=== PATIENT | female | born 1965 | race African-American/Black ===

== ENCOUNTER 2022-01-24 18:07 | Emergency (ER) | payer OTHER ==
[~2022-01-24] VITALS: Ht 165.1 cm; Wt 75.0 kg
[2022-01-24 20:02] LABS: BASOPHILS % 0.9 % (0.0-2.0); EOSINOPHILS % 3.6 % (0.0-5.0); HEMATOCRIT. 39.6 % (36.0-48.0); HEMOGLOBIN. 12.9 g/dL (12.0-16.0); LYMPHOCYTES % 20.4 % (20.0-50.0); MEAN CORPUSCULAR VOLUME 95.3 fL (81.0-99.0); MEAN PLATELET VOLUME 9.5 fl (7.4-10.4); MONOCYTES % 10.5 % (2.0-8.0); NEUTROPHILS % 64.6 % (40.0-76.0); PLATELET 247 x1000/uL (130-400); RED BLOOD CELL COUNT 4.16 mill/uL (4.2-5.4)
[2022-01-24 20:13] LABS: CHLORIDE 105 mEq/L (98-107)
[2022-01-24 20:20] LABS: ETHANOL BLOOD < 10 mg/dL
[2022-01-24 20:22] LABS: CLARITY URINE CLEAR (CLEAR); COLOR URINE YELLOW (YELLOW); KETONES URINE NEGATIVE (NEGATIVE); LEUKOCYTE ESTERASE URINE NEGATIVE (NEGATIVE); NITRITE URINE NEGATIVE (NEGATIVE); OCCULT BLOOD URINE NEGATIVE (NEGATIVE); PROTEIN URINE NEGATIVE (NEGATIVE); SPECIFIC GRAVITY URINE 1.014 (1.005-1.030)
[2022-01-24 20:36] LABS: *AMPHETAMINES SCREEN URINE NEGATIVE (NEGATIVE); *BARBITURATES SCREEN URINE NEGATIVE (NEGATIVE); *BENZODIAZEPINES SCREEN URINE NEGATIVE (NEGATIVE); *COCAINE SCREEN URINE NEGATIVE (NEGATIVE); CANNABINOID URINE SCREEN NEGATIVE (NEGATIVE); METHADONE URINE SCREEN NEGATIVE (NEGATIVE); OPIATES URINE SCREEN NEGATIVE (NEGATIVE); PHENCYCLIDINE URINE SCREEN NEGATIVE (NEGATIVE)
[2022-01-24] MEDS ORDERED: LORAZEPAM 1MG TABLET PO ONE (21:00)
[2022-01-25] MEDS ORDERED: ARIPIPRAZOLE 5MG TABLET PO SCH (10:30)
[2022-01-25 11:40] VITALS: BP 130/62
== END 2022-01-25 11:58 | disposition home or self-care (01) ==
LOC: ER 18:07
DX: F20.89 Other schizophrenia (principal); I10 Essential (primary) hypertension; Z20.822 Contact with and (suspected) exposure to COVID-19
CPT/HCPCS: 36415; 80053; 80305; 80307; 80320; 80329; 81003; 85025; 87426; 99285; C9803; G0480

== ENCOUNTER 2023-09-06 14:16 | Emergency (ER) | payer OTHER ==
[~2023-09-06] VITALS: Ht 165.1 cm; Wt 70.0 kg
[2023-09-06 14:29] VITALS: O2SAT 100
[2023-09-06 16:07] LABS: CLARITY URINE CLEAR (CLEAR); COLOR URINE YELLOW (YELLOW); GLUCOSE URINE NEGATIVE (NEGATIVE); KETONES URINE NEGATIVE (NEGATIVE); LEUKOCYTE ESTERASE URINE NEGATIVE (NEGATIVE); NITRITE URINE NEGATIVE (NEGATIVE); OCCULT BLOOD URINE NEGATIVE (NEGATIVE); PROTEIN URINE NEGATIVE (NEGATIVE); SPECIFIC GRAVITY URINE 1.007 (1.005-1.030)
[2023-09-06 16:09] LABS: BASOPHILS % 0.7 % (0.0-2.0); DIFFERENTIAL COMMENT 0; EOSINOPHILS % 0.5 % (0.0-5.0); HEMATOCRIT. 42.2 % (36.0-48.0); HEMOGLOBIN. 14.1 g/dL (12.0-16.0); LYMPHOCYTES % 17.1 % (20.0-50.0); MEAN CORPUSCULAR HGB CONC 33.4 g/dL (31.0-37.0); MEAN CORPUSCULAR VOLUME 95.6 fL (81.0-99.0); MEAN PLATELET VOLUME 10.2 fl (7.4-10.4); MONOCYTES % 7.1 % (2.0-8.0); NEUTROPHILS % 74.6 % (40.0-76.0); PLATELET 228 x1000/uL (130-400); RED BLOOD CELL COUNT 4.41 mill/uL (4.2-5.4); RED CELL DISTRIBUTION WIDTH 13.8 % (11.6-14.6); WHITE BLOOD COUNT 9.9 x1000/uL (4.5-11.0)
[2023-09-06 16:19] LABS: ALANINE AMINOTRANSFERASE 16 IU/L (10-49); ALBUMIN 4.5 g/dL (3.2-4.8); ASPARTATE AMINOTRANSFERASE 27 IU/L (<34); BILIRUBIN TOTAL 0.7 mg/dL (0.1-1.0); CALCIUM 10.1 mg/dL (8.7-10.4); CARBON DIOXIDE 30 mEq/L (21-32); CHLORIDE 101 mEq/L (98-107); CREATININE 0.8 mg/dL (0.6-1.0); GLUCOSE 102 mg/dL (70-105); POTASSIUM 3.3 mEq/L (3.5-5.1); PROTEIN TOTAL 8.7 g/dL (6.0-8.3); SODIUM 139 mEq/L (136-145); UREA NITROGEN BLOOD 11 mg/dL (9-23)
[2023-09-06 17:03] VITALS: BP 145/98; PULSE 101; RESP 18; TEMP 98.9
== END 2023-09-06 17:03 | disposition home or self-care (01) ==
LOC: ER 14:16
DX: R10.9 Unspecified abdominal pain (principal); I48.91 Unspecified atrial fibrillation; I10 Essential (primary) hypertension; Z86.59 Personal history of other mental and behavioral disorders
CPT/HCPCS: 36415; 80053; 81003; 85025; 99283

== ENCOUNTER 2023-09-08 14:02 | Emergency (ER) | payer OTHER, MEDICAID ==
[~2023-09-08] VITALS: Ht 162.6 cm; Wt 54.0 kg
[2023-09-08 14:26] VITALS: TEMP 98.4; O2SAT 98
[2023-09-08] MEDS ORDERED: ASPIRIN 325MG TABLET PO ONE (14:30)
[2023-09-08 14:50] LABS: BASOPHILS % 0.8 % (0.0-2.0); EOSINOPHILS % 2.2 % (0.0-5.0); HEMATOCRIT. 38.7 % (36.0-48.0); HEMOGLOBIN. 12.5 g/dL (12.0-16.0); LYMPHOCYTES % 21.9 % (20.0-50.0); MEAN CORPUSCULAR HEMOGLOBIN 31.2 pg (28.0-32.0); MEAN CORPUSCULAR HGB CONC 32.2 g/dL (31.0-37.0); MEAN CORPUSCULAR VOLUME 96.8 fL (81.0-99.0); MEAN PLATELET VOLUME 10.1 fl (7.4-10.4); MONOCYTES % 7.8 % (2.0-8.0); NEUTROPHILS % 67.3 % (40.0-76.0); PLATELET 219 x1000/uL (130-400); WHITE BLOOD COUNT 8.1 x1000/uL (4.5-11.0)
[2023-09-08 15:01] LABS: ALANINE AMINOTRANSFERASE 12 IU/L (10-49); ASPARTATE AMINOTRANSFERASE 25 IU/L (<34); BILIRUBIN TOTAL 0.8 mg/dL (0.1-1.0); CALCIUM 9.8 mg/dL (8.7-10.4); CARBON DIOXIDE 29 mEq/L (21-32); CHLORIDE 102 mEq/L (98-107); CREATININE 0.8 mg/dL (0.6-1.0); GLUCOSE 103 mg/dL (70-105); POTASSIUM 3.4 mEq/L (3.5-5.1); PROTEIN TOTAL 7.4 g/dL (6.0-8.3); SODIUM 138 mEq/L (136-145); TROPONIN I HIGH SENSITIVITY 23 ng/L (3.0-34); UREA NITROGEN BLOOD 11 mg/dL (9-23)
[2023-09-08 19:36] LABS: TROPONIN I HIGH SENSITIVITY 29 ng/L (3.0-34)
[2023-09-08 21:10] VITALS: BP 122/64; PULSE 63; RESP 18
== END 2023-09-09 00:20 | disposition short-term general hospital (02) ==
LOC: ER 14:52
DX: R07.9 Chest pain, unspecified (principal); R00.2 Palpitations; I10 Essential (primary) hypertension; F20.9 Schizophrenia, unspecified; I48.91 Unspecified atrial fibrillation
CPT/HCPCS: 36415; 71045; 80053; 84484; 85025; 85379; 93005; 99285

== ENCOUNTER 2023-09-15 14:54 | Emergency (ER) | payer OTHER, MEDICAID ==
[~2023-09-15] VITALS: Ht 165.1 cm; Wt 79.0 kg
[2023-09-15 14:57] VITALS: TEMP 97.7; O2SAT 100
[2023-09-15 17:30] LABS: BASOPHILS % 0.7 % (0.0-2.0); EOSINOPHILS % 3.8 % (0.0-5.0); HEMATOCRIT. 40.5 % (36.0-48.0); HEMOGLOBIN. 13.4 g/dL (12.0-16.0); LYMPHOCYTES % 23.1 % (20.0-50.0); MEAN CORPUSCULAR HGB CONC 33.1 g/dL (31.0-37.0); MEAN CORPUSCULAR VOLUME 96.7 fL (81.0-99.0); MONOCYTES % 6.3 % (2.0-8.0); NEUTROPHILS % 66.1 % (40.0-76.0); PLATELET 222 x1000/uL (130-400); RED BLOOD CELL COUNT 4.19 mill/uL (4.2-5.4); RED CELL DISTRIBUTION WIDTH 14.3 % (11.6-14.6); WHITE BLOOD COUNT 8.2 x1000/uL (4.5-11.0)
[2023-09-15 18:06] LABS: ALANINE AMINOTRANSFERASE 13 IU/L (10-49); ALBUMIN 4.4 g/dL (3.2-4.8); ASPARTATE AMINOTRANSFERASE 26 IU/L (<34); BILIRUBIN TOTAL 0.7 mg/dL (0.1-1.0); CALCIUM 9.9 mg/dL (8.7-10.4); CARBON DIOXIDE 30 mEq/L (21-32); CHLORIDE 103 mEq/L (98-107); CREATININE 0.8 mg/dL (0.6-1.0); GLUCOSE 101 mg/dL (70-105); POTASSIUM 3.4 mEq/L (3.5-5.1); PROTEIN TOTAL 7.7 g/dL (6.0-8.3); SODIUM 136 mEq/L (136-145); TROPONIN I HIGH SENSITIVITY 26 ng/L (3.0-34); UREA NITROGEN BLOOD 9 mg/dL (9-23)
[2023-09-15 23:04] VITALS: BP 148/89; PULSE 67; RESP 14
== END 2023-09-15 23:16 | disposition short-term general hospital (02) ==
LOC: ER 15:02
DX: I24.9 Acute ischemic heart disease, unspecified (principal); I48.91 Unspecified atrial fibrillation; I10 Essential (primary) hypertension; F20.9 Schizophrenia, unspecified
CPT/HCPCS: 36415; 71045; 80053; 83880; 84484; 85025; 93005; 99285

== ENCOUNTER 2023-12-07 21:27 | Emergency (ER) | payer OTHER, MEDICAID ==
[~2023-12-07] VITALS: Ht 165.1 cm; Wt 66.0 kg
[2023-12-07 21:30] VITALS: TEMP 99; O2SAT 98
[2023-12-07 22:56] LABS: BASOPHILS % 0.8 % (0.0-2.0); EOSINOPHILS % 3.4 % (0.0-5.0); HEMATOCRIT. 35.3 % (36.0-48.0); LYMPHOCYTES % 17.3 % (20.0-50.0); MEAN CORPUSCULAR HEMOGLOBIN 32.6 pg (28.0-32.0); MEAN CORPUSCULAR VOLUME 95.8 fL (81.0-99.0); MEAN PLATELET VOLUME 9.5 fl (7.4-10.4); MONOCYTES % 7.4 % (2.0-8.0); NEUTROPHILS % 71.1 % (40.0-76.0); PLATELET 203 x1000/uL (130-400); RED BLOOD CELL COUNT 3.69 mill/uL (4.2-5.4); RED CELL DISTRIBUTION WIDTH 13.9 % (11.6-14.6); WHITE BLOOD COUNT 7.4 x1000/uL (4.5-11.0)
[2023-12-07 23:02] LABS: CHLORIDE 105 mEq/L (98-107); POTASSIUM 3.3 mEq/L (3.5-5.1); SODIUM 139 mEq/L (136-145)
[2023-12-07 23:03] LABS: CARBON DIOXIDE 28 mEq/L (21-32)
[2023-12-07 23:04] LABS: CALCIUM 9.1 mg/dL (8.7-10.4)
[2023-12-07 23:08] LABS: CREATININE 0.7 mg/dL (0.6-1.0); GLUCOSE 91 mg/dL (70-105)
[2023-12-07 23:09] LABS: UREA NITROGEN BLOOD 10 mg/dL (9-23)
[2023-12-07 23:10] LABS: ALANINE AMINOTRANSFERASE 9 IU/L (10-49); ALBUMIN 3.8 g/dL (3.2-4.8); ASPARTATE AMINOTRANSFERASE 29 IU/L (<34)
[2023-12-07 23:11] LABS: BILIRUBIN TOTAL 0.6 mg/dL (0.1-1.0); PROTEIN TOTAL 6.3 g/dL (6.0-8.3); TROPONIN I HIGH SENSITIVITY 35 ng/L (3.0-34)
[2023-12-08 00:24] LABS: TROPONIN I HIGH SENSITIVITY 40 ng/L (3.0-34)
[2023-12-08 02:28] LABS: TROPONIN I HIGH SENSITIVITY 40 ng/L (3.0-34)
[2023-12-08 04:11] VITALS: BP 140/70; PULSE 89; RESP 13
== END 2023-12-08 04:18 | disposition short-term general hospital (02) ==
LOC: ER 21:27 → EDBEDREQ 12-08 01:59 → EDBEDREQTM 12-08 01:59 → CANBEDREQ 12-08 03:59 → ER 12-08 04:18
DX: R79.89 Other specified abnormal findings of blood chemistry (principal); R00.2 Palpitations; I48.91 Unspecified atrial fibrillation; I10 Essential (primary) hypertension; F20.9 Schizophrenia, unspecified
CPT/HCPCS: 36415; 71045; 80053; 84484; 85025; 93005; 99285

== ENCOUNTER 2023-12-12 16:26 | Emergency (ER) | payer OTHER, MEDICAID ==
[~2023-12-12] VITALS: Ht 162.6 cm; Wt 73.0 kg
[2023-12-12 16:27] VITALS: O2SAT 99
[2023-12-12 17:20] LABS: BASOPHILS % 0.9 % (0.0-2.0); DIFFERENTIAL COMMENT 0; EOSINOPHILS % 5.5 % (0.0-5.0); HEMOGLOBIN. 10.2 g/dL (12.0-16.0); LYMPHOCYTES % 31.9 % (20.0-50.0); MEAN CORPUSCULAR HGB CONC 32.8 g/dL (31.0-37.0); MEAN CORPUSCULAR VOLUME 79.2 fL (81.0-99.0); MEAN PLATELET VOLUME 7.8 fl (7.4-10.4); MONOCYTES % 9.4 % (2.0-8.0); NEUTROPHILS % 52.3 % (40.0-76.0); PLATELET 380 x1000/uL (130-400); RED BLOOD CELL COUNT 3.92 mill/uL (4.2-5.4); RED CELL DISTRIBUTION WIDTH 17.5 % (11.6-14.6); WHITE BLOOD COUNT 5.4 x1000/uL (4.5-11.0)
[2023-12-12 17:28] LABS: INR 1.1; PROTHROMBIN TIME 12.5 sec (9.6-11.0)
[2023-12-12 17:34] LABS: CHLORIDE 116 mEq/L (98-107); POTASSIUM 3.8 mEq/L (3.5-5.1); SODIUM 142 mEq/L (136-145)
[2023-12-12 17:35] LABS: CALCIUM 8.4 mg/dL (8.7-10.4); CARBON DIOXIDE 21 mEq/L (21-32)
[2023-12-12 17:40] LABS: CREATININE 0.8 mg/dL (0.6-1.0); ETHANOL BLOOD < 10 mg/dL (<10); GLUCOSE 109 mg/dL (70-105); UREA NITROGEN BLOOD 6 mg/dL (9-23)
[2023-12-12 17:42] LABS: ALANINE AMINOTRANSFERASE 8 IU/L (10-49); ALBUMIN 3.3 g/dL (3.2-4.8); ASPARTATE AMINOTRANSFERASE 12 IU/L (<34); BILIRUBIN TOTAL 0.5 mg/dL (0.1-1.0); PROTEIN TOTAL 5.3 g/dL (6.0-8.3)
[2023-12-12 17:43] LABS: TROPONIN I HIGH SENSITIVITY < 4 ng/L (3.0-34)
[2023-12-12] MEDS: SODIUM CHLORIDE 0.9% 1,000 ML IV ONE (17:55)
[2023-12-12 18:06] LABS: AMMONIA < 17 uMol/L (<32)
[2023-12-12] MEDS: ASPIRIN 325MG EC TABLET PO ONE (20:11)
[2023-12-12 22:44] VITALS: BP 155/61; PULSE 65; RESP 18; TEMP 98.8
== END 2023-12-12 23:10 | disposition short-term general hospital (02) ==
LOC: ER 16:26 → CANBEDREQ 12-14 21:08
DX: G45.9 Transient cerebral ischemic attack, unspecified (principal); I48.91 Unspecified atrial fibrillation; I10 Essential (primary) hypertension; F20.9 Schizophrenia, unspecified
CPT/HCPCS: 80053; 80320; 82140; 82962; 83605; 83690; 85025; 85610; 84484; 36415; 71045; 70450; 93005; 99285; J7030; G0480

== ENCOUNTER 2024-07-22 23:14 | Emergency (ER) | payer OTHER, MEDICAID ==
[~2024-07-22] VITALS: Ht 172.7 cm; Wt 73.0 kg
[2024-07-22 23:19] VITALS: BP 140/91; TEMP 98.3; O2SAT 98
[2024-07-23 01:36] VITALS: PULSE 92; RESP 18
== END 2024-07-23 03:23 | disposition home or self-care (01) ==
LOC: ER 23:23
DX: M79.605 Pain in left leg (principal); F20.9 Schizophrenia, unspecified; I10 Essential (primary) hypertension; I48.91 Unspecified atrial fibrillation; R20.2 Paresthesia of skin
CPT/HCPCS: 93971; 99284

== ENCOUNTER 2024-08-17 00:26 | Emergency (ER) | payer OTHER, MEDICAID ==
[~2024-08-17] VITALS: Ht 162.6 cm; Wt 65.0 kg
[2024-08-17 00:28] VITALS: O2SAT 100
[2024-08-17] MEDS ORDERED: LIDO700A15 TP (02:13)
[2024-08-17 03:05] VITALS: BP 143/72; PULSE 72; RESP 16; TEMP 36.78072; O2SAT 100
== END 2024-08-17 03:07 | disposition home or self-care (01) ==
LOC: ER 00:26
DX: R25.2 Cramp and spasm (principal); I48.91 Unspecified atrial fibrillation; I10 Essential (primary) hypertension; F20.9 Schizophrenia, unspecified
CPT/HCPCS: 99283

== ENCOUNTER 2024-08-17 06:54 | Emergency (ER) | payer OTHER, MEDICAID ==
[~2024-08-17] VITALS: Ht 162.6 cm; Wt 65.0 kg
[~2024-08-17 06:54] MED LIST: LIDO700A15 TP
[2024-08-17 07:05] VITALS: O2SAT 98
[2024-08-17 08:29] VITALS: BP 111/64; PULSE 87; RESP 16; TEMP 36.83628; O2SAT 98
[2024-09-21] MEDS ORDERED: APIX5TAB PO (23:18)
[2024-09-21] MEDS ORDERED: LIP40 PO (23:18)
[2024-09-21] MEDS ORDERED: METO-539 MT (23:18)
== END 2024-08-17 08:30 | disposition home or self-care (01) ==
LOC: ER 06:58
DX: M79.605 Pain in left leg (principal); I10 Essential (primary) hypertension; I48.91 Unspecified atrial fibrillation; Z86.59 Personal history of other mental and behavioral disorders
CPT/HCPCS: 99281

== ENCOUNTER 2024-09-03 19:04 | Emergency (ER) | payer OTHER, MEDICAID ==
[~2024-09-03] VITALS: Ht 167.6 cm; Wt 73.0 kg
[2024-09-03 19:12] VITALS: TEMP 98.6; O2SAT 95
[2024-09-03] MEDS ORDERED: GUAI-740 MT (20:25)
[2024-09-03 20:35] VITALS: BP 150/90; PULSE 83; RESP 16; O2SAT 95
== END 2024-09-03 20:37 | disposition home or self-care (01) ==
LOC: ER 19:04
DX: R05.9 Cough, unspecified (principal); F20.9 Schizophrenia, unspecified; I48.91 Unspecified atrial fibrillation; I10 Essential (primary) hypertension
CPT/HCPCS: 71045; 99283

== ENCOUNTER 2024-09-13 23:44 | Emergency (ER) | payer OTHER, MEDICAID ==
[~2024-09-13] VITALS: Ht 167.6 cm; Wt 64.0 kg
[~2024-09-13 23:44] MED LIST changes: +GUAI-740 MT
[2024-09-14 00:05] VITALS: BP 152/67; PULSE 80; RESP 16; TEMP 36.9; O2SAT 98
[2024-09-14 05:00] LABS: BASOPHILS % 0.5 % (0.0-2.0); EOSINOPHILS % 2.6 % (0.0-5.0); HEMATOCRIT. 35.2 % (36.0-48.0); HEMOGLOBIN. 11.7 g/dL (12.0-16.0); LYMPHOCYTES % 18.8 % (20.0-50.0); MEAN CORPUSCULAR HEMOGLOBIN 32.4 pg (28.0-32.0); MEAN CORPUSCULAR HGB CONC 33.1 g/dL (31.0-37.0); MEAN CORPUSCULAR VOLUME 97.9 fL (81.0-99.0); MONOCYTES % 6.2 % (2.0-8.0); NEUTROPHILS % 71.9 % (40.0-76.0); PLATELET 192 x1000/uL (130-400); RED CELL DISTRIBUTION WIDTH 15.2 % (11.6-14.6); WHITE BLOOD COUNT 6.5 x1000/uL (4.5-11.0)
[2024-09-14 05:38] LABS: CHLORIDE 106 mEq/L (98-107); POTASSIUM 3.4 mEq/L (3.5-5.1); SODIUM 142 mEq/L (136-145)
[2024-09-14 05:39] LABS: CALCIUM 9.7 mg/dL (8.7-10.4); CARBON DIOXIDE 29 mEq/L (21-32)
[2024-09-14 05:44] LABS: CREATININE 0.9 mg/dL (0.6-1.0); GLUCOSE 117 mg/dL (70-105); UREA NITROGEN BLOOD 14 mg/dL (9-23)
[2024-09-14 05:45] LABS: TROPONIN I HIGH SENSITIVITY 24 ng/L (3.0-34)
[2024-09-14] MEDS ORDERED: GUAI237L83 MT (09:09)
[2024-09-14] MEDS: POTASSIUM CHLORIDE 10MEQ TABLET SR PO ONE (09:49)
[2024-09-14 10:18] LABS: TROPONIN I HIGH SENSITIVITY 25 ng/L (3.0-34)
[2024-09-14 10:57] LABS: CLARITY URINE CLEAR (CLEAR); COLOR URINE YELLOW (YELLOW); GLUCOSE URINE NEGATIVE (NEGATIVE); KETONES URINE NEGATIVE (NEGATIVE); LEUKOCYTE ESTERASE URINE NEGATIVE (NEGATIVE); NITRITE URINE NEGATIVE (NEGATIVE); OCCULT BLOOD URINE NEGATIVE (NEGATIVE); PROTEIN URINE 1+ (NEGATIVE); SPECIFIC GRAVITY URINE 1.017 (1.005-1.030)
[2024-09-14 11:02] LABS: RBC URINE 0-2 /hpf (0-2); YEAST URINE NONE SEEN
[2024-09-14 11:07] LABS: SQUAMOUS EPITHELIAL CELL URINE FEW /lpf (RARE/1+)
[2024-09-14 11:08] LABS: BACTERIA URINE FEW
== END 2024-09-14 11:39 | disposition home or self-care (01) ==
LOC: ER 23:44
DX: R05.9 Cough, unspecified (principal); R09.81 Nasal congestion; I10 Essential (primary) hypertension; I48.91 Unspecified atrial fibrillation; F20.9 Schizophrenia, unspecified; R01.1 Cardiac murmur, unspecified
CPT/HCPCS: 36415; 71045; 80048; 81003; 84484; 85025; 93005; 99285; A4606

== ENCOUNTER 2024-09-24 10:43 | Emergency (ER) | payer OTHER, MEDICAID ==
[~2024-09-24] VITALS: Ht 165.1 cm; Wt 73.0 kg
[~2024-09-24 10:43] MED LIST changes: +APIX5TAB PO; +GUAI237L83 MT; +LIP40 PO; +METO-539 MT
[2024-09-24 10:45] VITALS: O2SAT 97
[2024-09-24] MEDS: DILTIAZEM HCL 5MG/ML 5ML VIAL IV ONE (12:15)
[2024-09-24 12:18] LABS: BASOPHILS % 0.8 % (0.0-2.0); EOSINOPHILS % 1.6 % (0.0-5.0); HEMATOCRIT. 31.4 % (36.0-48.0); HEMOGLOBIN. 10.5 g/dL (12.0-16.0); LYMPHOCYTES % 13.1 % (20.0-50.0); MEAN CORPUSCULAR HEMOGLOBIN 33.3 pg (28.0-32.0); MEAN CORPUSCULAR HGB CONC 33.4 g/dL (31.0-37.0); MEAN CORPUSCULAR VOLUME 99.7 fL (81.0-99.0); MEAN PLATELET VOLUME 10.6 fl (7.4-10.4); MONOCYTES % 6.9 % (2.0-8.0); NEUTROPHILS % 77.6 % (40.0-76.0); PLATELET 191 x1000/uL (130-400); RED BLOOD CELL COUNT 3.14 mill/uL (4.2-5.4); RED CELL DISTRIBUTION WIDTH 16.1 % (11.6-14.6); WHITE BLOOD COUNT 5.5 x1000/uL (4.5-11.0)
[2024-09-24 12:25] LABS: CHLORIDE 107 mEq/L (98-107); POTASSIUM 3.5 mEq/L (3.5-5.1); SODIUM 141 mEq/L (136-145)
[2024-09-24 12:26] LABS: CARBON DIOXIDE 26 mEq/L (21-32)
[2024-09-24 12:27] LABS: CALCIUM 9.5 mg/dL (8.7-10.4)
[2024-09-24 12:31] LABS: CREATININE 0.8 mg/dL (0.6-1.0); GLUCOSE 100 mg/dL (70-105); UREA NITROGEN BLOOD 11 mg/dL (9-23)
[2024-09-24 12:32] LABS: TROPONIN I HIGH SENSITIVITY 29 ng/L (3.0-34)
[2024-09-24] MEDS: DILTIAZEM HCL 60MG TABLET PO ONE (13:15)
[2024-09-24] MEDS: ASPIRIN 325MG EC TABLET PO ONE (14:31)
[2024-09-24] MEDS: DILTIAZEM HCL 5MG/ML 5ML VIAL IV SCH (16:05)
[2024-09-24 16:20] VITALS: BP 135/66; PULSE 107; RESP 22; TEMP 36.8; O2SAT 97
[2024-09-24 16:39] LABS: TROPONIN I HIGH SENSITIVITY 32 ng/L (3.0-34)
== END 2024-09-24 16:54 | disposition short-term general hospital (02) ==
LOC: ER 10:43 → EDBEDREQTM 13:53 → EDBEDREQ 13:53 → ER 16:54
DX: I48.91 Unspecified atrial fibrillation (principal); R07.9 Chest pain, unspecified; Z79.01 Long term (current) use of anticoagulants; Z79.899 Other long term (current) drug therapy
CPT/HCPCS: 99291; 96374; 80048; 83880; 85025; 84484; 36415; 71045; 93005; 96376; J3490

== ENCOUNTER 2024-10-03 00:34 | Emergency (ER) | payer OTHER, MEDICAID ==
[~2024-10-03] VITALS: Ht 162.6 cm; Wt 62.0 kg
[2024-10-03 00:41] VITALS: TEMP 36.4; O2SAT 99
[2024-10-03 05:36] LABS: BASOPHILS % 1.1 % (0.0-2.0); EOSINOPHILS % 2.3 % (0.0-5.0); HEMATOCRIT. 32.1 % (36.0-48.0); HEMOGLOBIN. 10.6 g/dL (12.0-16.0); LYMPHOCYTES % 16.5 % (20.0-50.0); MEAN CORPUSCULAR HEMOGLOBIN 32.5 pg (28.0-32.0); MEAN CORPUSCULAR HGB CONC 33.1 g/dL (31.0-37.0); MEAN CORPUSCULAR VOLUME 98.1 fL (81.0-99.0); MEAN PLATELET VOLUME 8.7 fl (7.4-10.4); MONOCYTES % 6.9 % (2.0-8.0); NEUTROPHILS % 73.2 % (40.0-76.0); PLATELET 259 x1000/uL (130-400); RED BLOOD CELL COUNT 3.27 mill/uL (4.2-5.4); RED CELL DISTRIBUTION WIDTH 15.9 % (11.6-14.6); WHITE BLOOD COUNT 5.8 x1000/uL (4.5-11.0)
[2024-10-03 05:46] LABS: CHLORIDE 106 mEq/L (98-107); SODIUM 143 mEq/L (136-145)
[2024-10-03 05:47] LABS: CALCIUM 9.7 mg/dL (8.7-10.4); CARBON DIOXIDE 29 mEq/L (21-32)
[2024-10-03 05:52] LABS: CREATININE 0.7 mg/dL (0.6-1.0); GLUCOSE 109 mg/dL (70-105); UREA NITROGEN BLOOD 10 mg/dL (9-23)
[2024-10-03] MEDS: POTASSIUM CHLORIDE 20MEQ/PACKET PO ONE (06:14)
[2024-10-03] MEDS: METOPROLOL TARTRATE 5MG/5ML VIAL IV ONE (06:17)
[2024-10-03 06:35] LABS: INFLUENZA TYPE A Presumptive Negative (Pres. Neg.); INFLUENZA TYPE B Presumptive Negative (Pres. Neg.)
[2024-10-03 06:36] LABS: RESPIRATORY SYNCYTIAL VIRUS Not Detected (Not Detectd)
[2024-10-03 08:19] LABS: TROPONIN I HIGH SENSITIVITY 42 ng/L (3.0-34)
[2024-10-03 08:20] LABS: TROPONIN I HIGH SENSITIVITY 44 ng/L (3.0-34)
[2024-10-03 09:00] VITALS: TEMP 97.6
[2024-10-03 09:05] VITALS: BP 144/72; PULSE 93; RESP 24; O2SAT 94
[2024-10-03] MEDS ORDERED: ACETAMINOPHEN 325MG TABLET PO PRN ×2 (09:15)
[2024-10-03] MEDS ORDERED: IPRATROPIUM/ALBUTEROL 0.5-3(2.5)MG/3ML NEB HHN PRN (09:15)
[2024-10-03] MEDS ORDERED: CLONIDINE 0.1MG TABLET PO PRN (09:15)
[2024-10-03] MEDS ORDERED: ONDANSETRON HCL 4MG/2ML INJ IV PRN (09:15)
[2024-10-03] MEDS ORDERED: MAGNESIUM/ALUMINUM HYDROXIDE/SIMETHICONE 30ML UDC PO PRN (09:15)
[2024-10-03] MEDS ORDERED: DOCUSATE SODIUM 100MG CAPSULE PO PRN (09:15)
[2024-10-03] MEDS ORDERED: AZITHROMYCIN 500MG/250ML 250 ML IV SCH (09:15)
[2024-10-03] MEDS ORDERED: GUAIFENESIN 200MG/10ML SUGAR FREE UDC PO PRN (09:15)
[2024-10-03] MEDS ORDERED: METHYLPREDNISOLONE SOD SUCC 40MG/ML (ACT-O-VIAL) IV SCH (09:30)
[2024-10-03] MEDS ORDERED: METOPROLOL TARTRATE 50MG TABLET PO SCH (21:00)
[2024-10-03] MEDS ORDERED: ATORVASTATIN CALCIUM 40MG TABLET PO SCH (21:00)
[2024-10-03] MEDS ORDERED: APIXABAN 5 MG TABLET PO SCH (21:00)
== END 2024-10-03 09:37 | disposition left against medical advice (07) ==
LOC: ER 00:34 → EDBEDREQTM 08:09 → CANBEDREQ 09:09 → ER 09:37
DX: R00.2 Palpitations (principal); E78.00 Pure hypercholesterolemia, unspecified; I11.0 Hypertensive heart disease with heart failure; I44.4 Left anterior fascicular block; I48.91 Unspecified atrial fibrillation; I50.9 Heart failure, unspecified; J96.01 Acute respiratory failure with hypoxia; Z79.01 Long term (current) use of anticoagulants; Z79.899 Other long term (current) drug therapy; Z95.0 Presence of cardiac pacemaker; Z20.822 Contact with and (suspected) exposure to COVID-19
CPT/HCPCS: 99291; 96374; 71045; 87426; 80048; 83880; 85025; 87420; 84484; 87804 ×2; 36415; 93005; J3490

== ENCOUNTER 2025-03-22 03:09 | Emergency (ER) | payer OTHER, MEDICAID ==
[~2025-03-22] VITALS: Ht 165.1 cm; Wt 68.0 kg
[~2025-03-22 03:09] MED LIST changes: +LIDO-53 TP; -LIDO700A15 TP
[2025-03-22 03:12] VITALS: TEMP 36.8; O2SAT 99
[2025-03-22] MEDS: MAGNESIUM/ALUMINUM HYDROXIDE/SIMETHICONE 30ML UDC PO ONE (03:48)
[2025-03-22] MEDS: ONDANSETRON HCL 4MG/2ML INJ IV ONE (03:48)
[2025-03-22 03:52] LABS: BASOPHILS % 0.6 % (0.0-2.0); EOSINOPHILS % 3.6 % (0.0-5.0); HEMATOCRIT. 36.5 % (36.0-48.0); HEMOGLOBIN. 11.7 g/dL (12.0-16.0); LYMPHOCYTES % 13.2 % (20.0-50.0); MEAN PLATELET VOLUME 9.1 fl (7.4-10.4); MONOCYTES % 7.9 % (2.0-8.0); NEUTROPHILS % 74.7 % (40.0-76.0); PLATELET 194 x1000/uL (130-400); RED BLOOD CELL COUNT 3.82 mill/uL (4.2-5.4); RED CELL DISTRIBUTION WIDTH 14.6 % (11.6-14.6)
[2025-03-22] MEDS: VISCOUS LIDOCAINE 2% 15 ML UDC MM ONE (03:53)
[2025-03-22] MEDS: SODIUM CHLORIDE 0.9% 500 ML IV ONE (03:55)
[2025-03-22 04:05] LABS: CREATININE 0.9 mg/dL (0.6-1.0)
[2025-03-22 04:06] LABS: ETHANOL BLOOD < 10 mg/dL (<10); TROPONIN I HIGH SENSITIVITY 27 ng/L (3.0-34); UREA NITROGEN BLOOD 18 mg/dL (9-23)
[2025-03-22 04:07] LABS: ASPARTATE AMINOTRANSFERASE 22 IU/L (<34)
[2025-03-22 04:08] LABS: BILIRUBIN DIRECT 0.2 mg/dL (<=3.0); BILIRUBIN TOTAL 0.7 mg/dL (0.1-1.0); PROTEIN TOTAL 7.0 g/dL (6.0-8.3)
[2025-03-22 04:14] LABS: INR 1.1
[2025-03-22] MEDS ORDERED: IOHEXOL-350 100 ML BOTTLE ONE (04:52)
[2025-03-22 05:42] VITALS: TEMP 98.3
[2025-03-22 05:56] LABS: TROPONIN I HIGH SENSITIVITY 28 ng/L (3.0-34)
[2025-03-22] MEDS ORDERED: PROT40 MT (06:11)
[2025-03-22] MEDS ORDERED: ACET-2708 MT (06:11)
[2025-03-22] MEDS ORDERED: ONDA4TAB50 MT (06:11)
[2025-03-22] MEDS: PANTOPRAZOLE 40MG DR TABLET PO SCH (06:19)
[2025-03-22 06:20] VITALS: BP 134/78; PULSE 103; RESP 18; O2SAT 94
[2025-03-22 06:47] LABS: CLARITY URINE CLEAR (CLEAR); COLOR URINE YELLOW (YELLOW); GLUCOSE URINE NEGATIVE (NEGATIVE); KETONES URINE NEGATIVE (NEGATIVE); LEUKOCYTE ESTERASE URINE NEGATIVE (NEGATIVE); NITRITE URINE NEGATIVE (NEGATIVE); OCCULT BLOOD URINE TRACE (NEGATIVE); PH URINE 6.5 (4.5-8.0); PROTEIN URINE 2+ (NEGATIVE); SPECIFIC GRAVITY URINE 1.036 (1.005-1.030); UROBILINOGEN URINE 0.2 E.U./dL (0.2-1.0)
[2025-03-22 07:11] LABS: *AMPHETAMINES SCREEN URINE NEGATIVE (NEGATIVE); *BARBITURATES SCREEN URINE NEGATIVE (NEGATIVE); *BENZODIAZEPINES SCREEN URINE NEGATIVE (NEGATIVE); *COCAINE SCREEN URINE NEGATIVE (NEGATIVE); CANNABINOID URINE SCREEN NEGATIVE (NEGATIVE); ECSTASY MDMA SCREEN URINE NEGATIVE (NEGATIVE); METHADONE URINE SCREEN NEGATIVE (NEGATIVE); OPIATES URINE SCREEN NEGATIVE (NEGATIVE); PHENCYCLIDINE URINE SCREEN NEGATIVE (NEGATIVE)
[2025-03-22 07:34] LABS: SQUAMOUS EPITHELIAL CELL URINE FEW /lpf (RARE/1+)
[2025-03-22 07:35] LABS: WBC URINE 0-2 /hpf (0-2)
[2025-03-22 07:36] LABS: BACTERIA URINE NONE SEEN
== END 2025-03-22 06:56 | disposition home or self-care (01) ==
LOC: ER 03:09 → CMPBEDREQ 03-24 08:29
DX: R10.10 Upper abdominal pain, unspecified (principal); E78.00 Pure hypercholesterolemia, unspecified; F20.9 Schizophrenia, unspecified; I27.20 Pulmonary hypertension, unspecified; I44.4 Left anterior fascicular block; I48.91 Unspecified atrial fibrillation; Z79.899 Other long term (current) drug therapy
CPT/HCPCS: 80076; 80305; 80048; 81003; 80320; 83880; 83605; 83690; 85025; 85610; 85730; 84484; 36415; 74174; 71045; 93005; 96374; 99285; Q9967; J2405; G0480

== ENCOUNTER 2025-03-28 02:57 | Emergency (ER) | payer MEDICAID, OTHER ==
[~2025-03-28] VITALS: Ht 170.2 cm; Wt 64.0 kg
[~2025-03-28 02:57] MED LIST changes: +ACET-2708 MT; +ONDA4TAB50 MT; +PROT40 MT
[2025-03-28 03:04] VITALS: O2SAT 100
[2025-03-28 03:35] LABS: BASOPHILS % 0.9 % (0.0-2.0); EOSINOPHILS % 3.1 % (0.0-5.0); HEMATOCRIT. 34.8 % (36.0-48.0); HEMOGLOBIN. 11.4 g/dL (12.0-16.0); LYMPHOCYTES % 14.3 % (20.0-50.0); MEAN PLATELET VOLUME 9.5 fl (7.4-10.4); MONOCYTES % 8.9 % (2.0-8.0); NEUTROPHILS % 72.8 % (40.0-76.0); PLATELET 179 x1000/uL (130-400); RED BLOOD CELL COUNT 3.70 mill/uL (4.2-5.4); RED CELL DISTRIBUTION WIDTH 14.1 % (11.6-14.6)
[2025-03-28 03:46] LABS: INR 1.1
[2025-03-28 03:55] LABS: CREATININE 1.1 mg/dL (0.6-1.0); ETHANOL BLOOD < 10 mg/dL (<10); UREA NITROGEN BLOOD 12 mg/dL (9-23)
[2025-03-28 03:56] LABS: TROPONIN I HIGH SENSITIVITY 31 ng/L (3.0-34)
[2025-03-28] MEDS ORDERED: FUROSEMIDE 40MG/4ML VIAL IVP NR (05:30)
[2025-03-28 06:50] LABS: TROPONIN I HIGH SENSITIVITY 33 ng/L (3.0-34)
[2025-03-28 07:12] VITALS: BP 125/68; PULSE 86; RESP 17; TEMP 37.1; O2SAT 99
== END 2025-03-28 07:38 | disposition short-term general hospital (02) ==
LOC: ER 02:57 → EDBEDREQ 05:51 → ER 07:38
DX: I11.0 Hypertensive heart disease with heart failure (principal); I50.9 Heart failure, unspecified; I48.91 Unspecified atrial fibrillation; E78.00 Pure hypercholesterolemia, unspecified; Z79.899 Other long term (current) drug therapy
CPT/HCPCS: 36415; 71045; 80048; 80320; 83735; 84484; 85025; 93005; 99285; G0480

== ENCOUNTER 2025-05-20 03:39 | Inpatient (IN) | payer OTHER, MEDICAID, MEDICARE ==
[~2025-05-20] VITALS: Ht 165.1 cm; Wt 56.2 kg
[2025-05-20 03:44] VITALS: O2SAT 96
[2025-05-20] MEDS: MAGNESIUM/ALUMINUM HYDROXIDE/SIMETHICONE 30ML UDC PO ONE (04:35)
[2025-05-20] MEDS: ACETAMINOPHEN 325MG TABLET PO ONE (04:36)
[2025-05-20 04:49] LABS: BASOPHILS % 0.9 % (0.0-2.0); EOSINOPHILS % 2.0 % (0.0-5.0); HEMATOCRIT. 33.3 % (36.0-48.0); HEMOGLOBIN. 10.9 g/dL (12.0-16.0); LYMPHOCYTES % 10.3 % (20.0-50.0); MEAN PLATELET VOLUME 9.7 fl (7.4-10.4); MONOCYTES % 7.0 % (2.0-8.0); NEUTROPHILS % 79.8 % (40.0-76.0); PLATELET 175 x1000/uL (130-400); RED BLOOD CELL COUNT 3.54 mill/uL (4.2-5.4); RED CELL DISTRIBUTION WIDTH 14.8 % (11.6-14.6)
[2025-05-20 05:04] LABS: INR 1.1
[2025-05-20 05:09] LABS: CREATININE 0.7 mg/dL (0.6-1.0)
[2025-05-20 05:10] LABS: UREA NITROGEN BLOOD 12 mg/dL (9-23)
[2025-05-20 05:11] LABS: ASPARTATE AMINOTRANSFERASE 25 IU/L (<34)
[2025-05-20 05:12] LABS: BILIRUBIN DIRECT 0.4 mg/dL (<=3.0); BILIRUBIN TOTAL 1.1 mg/dL (0.1-1.0); PROTEIN TOTAL 6.4 g/dL (6.0-8.3)
[2025-05-20] MEDS: KCL 20MEQ/100ML PREMIX 100 ML IV NR (05:38)
[2025-05-20] MEDS: POTASSIUM CHLORIDE 20MEQ/PACKET PO NR (05:38)
[2025-05-20 05:42] LABS: TROPONIN I HIGH SENSITIVITY 55 ng/L (3.0-34)
[2025-05-20] MEDS: ASPIRIN 325MG EC TABLET PO NR (06:45)
[2025-05-20] MEDS: MORPHINE SULFATE 2 MG/ML INJ (NOT FOR IM USE) IV ONE (07:00)
[2025-05-20] MEDS ORDERED: DOCUSATE SODIUM 100MG CAPSULE PO PRN (08:15)
[2025-05-20] MEDS ORDERED: GUAIFENESIN 200MG/10ML SUGAR FREE UDC PO PRN (08:15)
[2025-05-20] MEDS ORDERED: IPRATROPIUM/ALBUTEROL 0.5-3(2.5)MG/3ML NEB HHN PRN (08:15)
[2025-05-20] MEDS ORDERED: ACETAMINOPHEN 325MG TABLET PO PRN ×2 (08:15)
[2025-05-20] MEDS ORDERED: LORAZEPAM 2MG/ML UD SYRINGE IV PRN (08:45)
[2025-05-20] MEDS ORDERED: LORAZEPAM 0.5MG TABLET PO PRN (08:45)
[2025-05-20 09:00] VITALS: BP 124/67; PULSE 71; RESP 18; TEMP 36.8072
[2025-05-20] MEDS ORDERED: CLONIDINE 0.1MG TABLET PO PRN (09:15)
[2025-05-20] MEDS: THIAMINE HCL 100MG TABLET PO SCH (09:55)
[2025-05-20] MEDS: METOPROLOL TARTRATE 50MG TABLET PO SCH (09:55)
[2025-05-20] MEDS: MULTIVITAMINS,THER W-MINERALS TABLET PO SCH (09:55)
[2025-05-20] MEDS: APIXABAN 5 MG TABLET PO SCH (09:55)
[2025-05-20] MEDS: FOLIC ACID 1MG TABLET PO SCH (09:55)
[2025-05-20] MEDS: FUROSEMIDE 20MG/2ML VIAL IVP SCH (09:56)
[2025-05-20] MEDS: PANTOPRAZOLE 40MG DR TABLET PO SCH (09:57)
[2025-05-20] MEDS: PNEUMOCOCCAL 20-VAL CONJ-DIP CRM 0.5ML IM ONE (10:15)
[2025-05-20] MEDS ORDERED: POTASSIUM CHLORIDE 20MEQ TABLET SR PO SCH (11:00)
[2025-05-20] MEDS: INFLUENZA VACCINE 05/PF 0.5 ML SYRINGE IM ONE (11:00)
[2025-05-20] MEDS: POTASSIUM CHLORIDE 20MEQ TABLET SR PO SCH ×2 (12:05→14:57)
[2025-05-20] MEDS: SUCRALFATE 1G TABLET PO SCH (12:05)
[2025-05-20] MEDS: SPIRONOLACTONE 25MG TABLET PO SCH (12:05)
[2025-05-20 15:42] LABS: CLARITY URINE CLEAR (CLEAR); COLOR URINE YELLOW (YELLOW); GLUCOSE URINE NEGATIVE (NEGATIVE); KETONES URINE NEGATIVE (NEGATIVE); LEUKOCYTE ESTERASE URINE NEGATIVE (NEGATIVE); NITRITE URINE NEGATIVE (NEGATIVE); OCCULT BLOOD URINE NEGATIVE (NEGATIVE); PH URINE 7.0 (4.5-8.0); PROTEIN URINE NEGATIVE (NEGATIVE); SPECIFIC GRAVITY URINE 1.008 (1.005-1.030); UROBILINOGEN URINE 0.2 E.U./dL (0.2-1.0)
[2025-05-20 16:02] LABS: *AMPHETAMINES SCREEN URINE NEGATIVE (NEGATIVE); *BARBITURATES SCREEN URINE NEGATIVE (NEGATIVE); *BENZODIAZEPINES SCREEN URINE NEGATIVE (NEGATIVE); *COCAINE SCREEN URINE NEGATIVE (NEGATIVE); METHADONE URINE SCREEN NEGATIVE (NEGATIVE)
[2025-05-20 16:03] LABS: CANNABINOID URINE SCREEN NEGATIVE (NEGATIVE); ECSTASY MDMA SCREEN URINE NEGATIVE (NEGATIVE); OPIATES URINE SCREEN NEGATIVE (NEGATIVE); PHENCYCLIDINE URINE SCREEN NEGATIVE (NEGATIVE)
[2025-05-20 17:34] LABS: TRIGLYCERIDE 58 mg/dL (0-150)
[2025-05-20 17:35] LABS: LDL CHOLESTEROL 115 mg/dL (5-100)
[2025-05-20 17:36] LABS: PHOSPHORUS 2.9 mg/dL (2.5-4.9)
[2025-05-20 19:28] LABS: CREATININE 0.9 mg/dL (0.6-1.0); UREA NITROGEN BLOOD 11 mg/dL (9-23)
[2025-05-20 19:33] LABS: FOLIC ACID (FOLATE) SERUM 16.73 ng/mL (>5.38); VITAMIN B12 SERUM 564 pg/mL (211-911)
[2025-05-20 19:38] LABS: TROPONIN I HIGH SENSITIVITY 45 ng/L (3.0-34)
[2025-05-20 20:00] VITALS: BP 101/54; PULSE 82; RESP 18; TEMP 37.1; O2SAT 99
[2025-05-20] MEDS: CARVEDILOL 6.25 MG TABLET PO SCH (21:00)
[2025-05-20] MEDS: ATORVASTATIN CALCIUM 40MG TABLET PO SCH (21:09)
[2025-05-21] VITALS: BP 118/64; PULSE 68; RESP 20; TEMP 36.5; O2SAT 99
[2025-05-21 02:31] LABS: TROPONIN I HIGH SENSITIVITY 50 ng/L (3.0-34)
[2025-05-21 04:00] VITALS: BP 119/68; PULSE 75; RESP 18; TEMP 36.9; O2SAT 100
[2025-05-21 07:33] LABS: BASOPHILS % 0.4 % (0.0-2.0); EOSINOPHILS % 1.8 % (0.0-5.0); HEMATOCRIT. 36.1 % (36.0-48.0); HEMOGLOBIN. 11.8 g/dL (12.0-16.0); LYMPHOCYTES % 9.2 % (20.0-50.0); MEAN PLATELET VOLUME 10.4 fl (7.4-10.4); MONOCYTES % 6.9 % (2.0-8.0); NEUTROPHILS % 81.7 % (40.0-76.0); PLATELET 178 x1000/uL (130-400); RED BLOOD CELL COUNT 3.84 mill/uL (4.2-5.4); RED CELL DISTRIBUTION WIDTH 15.2 % (11.6-14.6)
[2025-05-21 07:37] LABS: CREATININE 1.0 mg/dL (0.6-1.0)
[2025-05-21 07:38] LABS: UREA NITROGEN BLOOD 10 mg/dL (9-23)
[2025-05-21 07:39] LABS: ASPARTATE AMINOTRANSFERASE 24 IU/L (<34)
[2025-05-21 07:40] LABS: BILIRUBIN DIRECT 0.3 mg/dL (<=3.0); BILIRUBIN TOTAL 1.0 mg/dL (0.1-1.0); PROTEIN TOTAL 6.6 g/dL (6.0-8.3); T4 FREE 1.22 ng/dL (0.89-1.76)
[2025-05-21 08:00] VITALS: BP 139/76; PULSE 75; RESP 18; TEMP 36.3; O2SAT 99
[2025-05-21] MEDS: FERROUS SULFATE 325MG TABLET PO SCH (08:03)
[2025-05-21] MEDS: ASPIRIN 81MG EC TABLET PO SCH (08:04)
[2025-05-21] MEDS: ONDANSETRON HCL 4MG/2ML INJ IV PRN (08:12)
[2025-05-21 08:14] LABS: TROPONIN I HIGH SENSITIVITY 47 ng/L (3.0-34)
[2025-05-21] MEDS: DEXT 5%/0.45% NACL 1000ML 1,000 ML IV SCH (09:00)
[2025-05-21 10:24] VITALS: BP 139/76; PULSE 75; RESP 18; TEMP 97.4
[2025-05-21 12:00] VITALS: BP 136/73; PULSE 80; RESP 18; TEMP 36.3; O2SAT 96
[2025-05-21 16:00] VITALS: BP 136/93; PULSE 82; RESP 18; TEMP 35.7; O2SAT 98
== END 2025-05-21 18:46 | disposition short-term general hospital (02) | DRG 280 ==
LOC: ER 03:39 → 8WST 06:41 → EDBEDREQTM 06:51 → EDBEDREQ 06:51 → ENRESERV 07:47
PROVIDERS: ADMIT Internal Medicine; ATTEND Internal Medicine
DX: I11.0 Hypertensive heart disease with heart failure (principal); I50.43 Acute on chronic combined systolic (congestive) and diastolic (congestive) heart failure; I21.4 Non-ST elevation (NSTEMI) myocardial infarction; I48.20 Chronic atrial fibrillation, unspecified; I31.39 Other pericardial effusion (noninflammatory); K21.9 Gastro-esophageal reflux disease without esophagitis; I42.9 Cardiomyopathy, unspecified; E87.6 Hypokalemia; D64.9 Anemia, unspecified; K29.70 Gastritis, unspecified, without bleeding; F10.129 Alcohol abuse with intoxication, unspecified; F20.9 Schizophrenia, unspecified; E78.00 Pure hypercholesterolemia, unspecified; Z79.82 Long term (current) use of aspirin; Z79.01 Long term (current) use of anticoagulants; Z79.899 Other long term (current) drug therapy; Z91.148 Patient's other noncompliance with medication regimen for other reason
CPT/HCPCS: 36415; 71045; 76705; 80048; 80061; 80076; 80305; 80320; 81003; 82550; 82607; 82728; 82746; 83036; 83540; 83550; 83735; 83880; 84100; 84439; 84443; 84484; 85025; 85379; 86850; 86900; 93005; 93970; 94640; 96365; 97162; 99285; A4606; J1938; J2405; J3480; G0480

== ENCOUNTER 2025-05-29 17:24 | Emergency (ER) | payer OTHER, MEDICAID ==
[~2025-05-29] VITALS: Ht 162.6 cm; Wt 69.0 kg
[2025-05-29 17:40] VITALS: O2SAT 100
[2025-05-29] MEDS: LORAZEPAM 1MG TABLET PO ONE (19:29)
[2025-05-29 21:04] LABS: BASOPHILS % 1.1 % (0.0-2.0); EOSINOPHILS % 2.1 % (0.0-5.0); HEMATOCRIT. 37.1 % (36.0-48.0); HEMOGLOBIN. 12.0 g/dL (12.0-16.0); LYMPHOCYTES % 15.6 % (20.0-50.0); MEAN PLATELET VOLUME 9.3 fl (7.4-10.4); MONOCYTES % 10.1 % (2.0-8.0); NEUTROPHILS % 71.1 % (40.0-76.0); PLATELET 268 x1000/uL (130-400); RED BLOOD CELL COUNT 3.90 mill/uL (4.2-5.4); RED CELL DISTRIBUTION WIDTH 15.2 % (11.6-14.6)
[2025-05-29 21:29] LABS: CREATININE 1.2 mg/dL (0.6-1.0)
[2025-05-29 21:30] LABS: UREA NITROGEN BLOOD 16 mg/dL (9-23)
[2025-05-29 21:31] LABS: ASPARTATE AMINOTRANSFERASE 27 IU/L (<34)
[2025-05-29 21:32] LABS: BILIRUBIN DIRECT 0.3 mg/dL (<=3.0); BILIRUBIN TOTAL 0.8 mg/dL (0.1-1.0); PROTEIN TOTAL 7.2 g/dL (6.0-8.3)
[2025-05-29 21:36] LABS: TROPONIN I HIGH SENSITIVITY 54 ng/L (3.0-34)
[2025-05-29 23:19] LABS: TROPONIN I HIGH SENSITIVITY 57 ng/L (3.0-34)
[2025-05-30 00:24] VITALS: BP 129/67; PULSE 115; RESP 26; TEMP 37.1; O2SAT 95
== END 2025-05-30 00:24 | disposition home or self-care (01) ==
LOC: ER 17:24
DX: R07.89 Other chest pain (principal); F20.9 Schizophrenia, unspecified; I48.20 Chronic atrial fibrillation, unspecified; I50.9 Heart failure, unspecified; Z79.899 Other long term (current) drug therapy
CPT/HCPCS: 36415; 71045; 80048; 80076; 80307; 80320; 80329; 84484; 85025; 93005; 99285; A4606; G0480